=== PATIENT | female | born 1985 | race Caucasian/White ===

== ENCOUNTER → 2021-03-11 16:05 | Outpatient (CLI) | payer BC, SELFPAY | LOC: RT 16:06 | PROVIDERS: PCP Physician Assistant; Visit Provider Physician Assistant | DX: R00.2 Palpitations (principal) | CPT/HCPCS: 93225; 93226 ==

== ENCOUNTER → 2022-02-22 14:48 | Outpatient (CLI) | payer BC, SELFPAY ==
--- NOTE | 2022-02-22 14:59 | XR_ITS ---
FINAL REPORT CLINICAL HISTORY: NECK PAIN FINDINGS: Three views were obtained. There is no acute fracture. There is no malalignment. The disc spaces are maintained. IMPRESSION: No acute process. Reviewed, Interpreted and Dictated by Vamsi Gallegos MD Transcribed by Krystian Townsend Authenticated by Vamsi Gallegos MD on 02/22/2022 04:44:[address] [facility]
== END ==
LOC: RAD 14:53
PROVIDERS: PCP Family Medicine; Visit Provider Nurse Practitioner Family
DX: M54.2 Cervicalgia (principal)
CPT/HCPCS: 72040

== ENCOUNTER 2022-04-24 11:12 | Emergency (ER) | payer BC, SELFPAY ==
[2022-04-24 11:40] VITALS: BP 109/76; PULSE 78; RESP 18; TEMP 36.8; O2SAT 98; BMI 20.1
--- NOTE | 2022-04-24 12:06 | HMH.EDUTC ---
[facility] [place] Clinical Impression: Bartholin's gland abscess Disposition: Home, Self-Care Condition on Discharge: Good Instructions: Trimethoprim/Sulfamethoxazole (Alternative Therapy), Clindamycin, DI for Bartholin Gland Cyst, Bartholin Gland Cyst Additional Instructions: Take medication as prescribed Call OBGYN office in the morning and inform them that Dr Gilman wanted to see you in the morning for further evaluation and treatment Sitz baths as advised Do not try to pop this Return if needed Straight to ER if any life threatening symptoms Prescriptions: Ibuprofen [Ibuprofen 600mg Tablet] 600 mg PO Q6HP PRN #20 tab PRN Reason: Moderate Pain Transmission Status: Pending to [facility] Sulfamethoxazole/Trimethoprim [Bactrim DS tablet] 1 each PO BID 7 Days #14 tab Transmission Status: Pending to [facility] clindamycin HCL [Clindamycin HCl] 300 mg PO Q8H 7 Days #21 cap Transmission Status: Pending to [facility] Referrals: Maynor Lainez MD [Primary Care Provider] - Sherri Gilman DO [Physician] - (Call in the morning and inform staff she wanted to see first thing for appointment) Forms: Work/School Release Time of Disposition: 12:29 Medical Decision Making - Stevan Inquiry Pt receiving controlled substance: No Stevan was queried for this patient: No Vital Signs: 04/24/22 11:40 Temperature 98.2 F Temperature Source Oral Pulse Rate [Right Brachial] 78 Respiratory Rate 18 Blood Pressure [Right Arm] 109/76 L Blood Pressure Mean [Right Arm] 87 Blood Pressure Source [Right Arm] Automatic Cuff Blood Pressure Position [Right Arm] Sitting 02 Sat by Pulse Oximetry 98 Oxygen Delivery Method Room Air - Physician Consults Physician Consulted: Dr Gilman Time: 12:31 Reason -: Obstetrical Eval/Care Comment/Response: Spoke with Dr Kalina CHANEY health economist and discussed patient, will start on antibiotics, and have her call office in am for same day appointment and inform them that she wanted to see her today [facility] [place] - General Stated complaint: possible infected cyst Time Seen by Provider: 04/24/22 12:06 Mode of Arrival: Ambulatory Source of Information: Patient Limitations: No Limitations Description of Symptoms (Recalled from Triage Doc. by RN): PATIENT C/O PAINFUL CYST TO LABIA X 4 DAYS HEENT Symptoms (Recalled from RN notes): No Resp Symptoms (Recalled from RN notes): No Skin Symptoms (Recalled from RN notes): No MS Symptoms (Recalled from RN notes): No Functional Status (Recalled from RN notes): WNL - History of Present Illness Provider Complaint: Patient states that she has had a small lump on her left labia and she seen OBGYN and they told her it was a bartholins cyst and they needed to watch it that it may get worse and have to be opened States that for the last 4 days it has continued to get worse State that she has been getting worse so today she came in to get it checked out - Related Data Home Medications Medication Instructions Recorded Confirmed Escitalopram Oxalate 10 mg PO DAILY 04/24/22 04/24/22 Previous Rx's Medication Instructions Recorded Ibuprofen [Ibuprofen 600mg 600 mg PO Q6HP PRN #20 tab 04/24/22 Tablet] Sulfamethoxazole/Trimethoprim 1 each PO BID 7 Days #14 tab 04/24/22 [Bactrim DS tablet] clindamycin HCL [Clindamycin HCl] 300 mg PO Q8H 7 Days #21 cap 04/24/22 Allergies Allergy/AdvReac Type Severity Reaction Status Date / Time No Known Allergies Allergy Verified 03/02/22 10:28 - Worker's Comp Is this a Worker's Comp case?: No [facility] History - Hepatitis A Screen Attestation statement:: This patient has been screened for Hepatitis A risk factors. I have reviewed the patient's past medical history: Yes Amputation: No Fractures: No Comment: [place] Teeth. Retinal blastoma age 3 - Social History Smoking Status: Never smoker Alcohol Intake: never Alcohol Intake Frequency:: other Substance Use Type: denies use
[2022-04-24 12:31] VITALS: BP 109/76; PULSE 78; RESP 18; TEMP 36.8; O2SAT 98
== END 2022-04-24 12:33 | disposition home or self-care (01) ==
PROVIDERS: Emergency Provider Nurse Practitioner; PCP Family Medicine
DX: N75.1 Abscess of Bartholin's gland (principal)
CPT/HCPCS: 99212; G0463

== ENCOUNTER → 2022-04-25 17:13 | Outpatient (CLI) | payer BC, SELFPAY | PROVIDERS: Visit Provider Obstetrics & Gynecology | DX: N75.1 Abscess of Bartholin's gland (principal); B95.8 Unspecified staphylococcus as the cause of diseases classified elsewhere | CPT/HCPCS: 87070; 87077; 87186; 87205 ==

== ENCOUNTER → 2023-05-10 12:41 | Outpatient (CLI) | payer BC, SELFPAY ==
--- NOTE | 2023-05-10 12:41 | US_ITS ---
PROCEDURE: US TRANSVAGINAL CLINICAL INDICATION: heavy periods/ large uterus COMPARISON: No exams were available for comparison FINDINGS: Transvaginal sonographic images of the pelvis were obtained. UTERUS: 9cm x 5cmx 4cm with a combined endometrial thickness of 10.6mm. In the endometrial cavity there appears to be a polyp in the more central portion of the cavity measuring 1.1 cm. There is a posterior fibroid measuring 1.5 cm x 0.9 cm x 1.2 cm. There are a 5 mm and a 3 mm nabothian cysts within the cervix. LEFT OVARY: [id number] with a volume of 8.4ml.There are multiple small follicular cysts. RIGHT OVARY: 4cmx [id number] with a volume of 14.8ml. There are multiple small follicular cysts. Both ovaries are seen and appear normal. Doppler flow to both ovaries are seen. There is no fluid in the cul-de-sac. IMPRESSION: 1. Anteverted slightly bulky uterus. 2. 1.1 cm polyp within the endometrial cavity. 3. 1.5 cm posterior fibroid. 4. Both ovaries have a polycystic appearance. Dictated by: Gennaro Rosas MD 05/10/2023 19:34 Gennaro Rosas MD in OV 05/10/2023 19:34
== END ==
LOC: RAD 12:41
PROVIDERS: PCP Family Medicine; Visit Provider Nurse Practitioner Obstetrics & Gynecology
DX: Z87.42 Personal history of other diseases of the female genital tract (principal); N85.2 Hypertrophy of uterus
CPT/HCPCS: 76830

== ENCOUNTER → 2023-06-08 10:12 | Outpatient (CLI) | payer BC, SELFPAY ==
[2023-06-08 10:54] LABS: Basophils % 0.7 % (0.1-2.0); Eosinophils # 0.1 K/mm3 (0.0-0.4); Eosinophils % 2.1 % (0.1-12.0); Hematocrit 41.2 % (37.0-47.0); Hemoglobin 13.2 g/dL (12.2-16.2); Lymphocytes # 1.7 K/mm3 (0.7-4.5); Lymphocytes % 33.4 % (10-50); Mean Corpuscular HGB Conc 32.1 g/dL (31.8-35.4); Mean Corpuscular Hemoglobin 30.1 pg (27.0-31.2); Mean Corpuscular Volume 93.7 fl (81-99); Mean Platelet Volume 8.8 fl (7.4-10.4); Monocytes # 0.3 K/mm3 (0.1-1.0); Monocytes % 5.2 % (1.7-9.3); Neutrophils % 58.7 % (37.0-80.0); Platelet Count 224 K/mm3 (142-424); Red Blood Count 4.39 M/mm3 (4.20-5.40); Red Cell Distribution Width 13.1 % (11.5-17.5); White Blood Count 5.1 K/mm3 (4.8-10.8)
[2023-06-08 11:29] LABS: Chloride 109 mmol/L (98-107); Potassium 4.1 mmoL/L (3.5-5.1); Sodium 144 mmol/L (136-145)
[2023-06-08 11:32] LABS: Alanine Aminotransferase 19 U/L (12-78); Albumin Level 3.9 g/dl (3.5-5.0); Albumin/Globulin Ratio 1.6 (1.1-1.8); Alkaline Phosphatase 58 U/L (38-126); Anion Gap 13.1 mEq/L (5-15); Aspartate Amino Transferase 30 U/L (14-36); Bilirubin,Total 0.2 mg/dl (0.2-1.3); Blood Urea Nitrogen 10 mg/dl (7-17); Carbon Dioxide 26 mmol/L (22.0-30.0); Estimated Glomerular Filt Rate 113 ml/min (>60); GFR (African American) 137 ML/MIN (>60); Globulin 2.5 g/dL (1.3-3.2); Total Protein,Serum 6.4 g/dl (6.3-8.2)
[2023-06-08 11:33] LABS: Calcium 8.9 mg/dl (8.4-10.2); Glucose 81 mg/dl (74-100)
[2023-06-08 11:52] LABS: HCG,Quantitative < 2 mIU/ml (0-5.42)
== END ==
PROVIDERS: PCP Family Medicine; Visit Provider Nurse Practitioner Obstetrics & Gynecology
DX: N92.0 Excessive and frequent menstruation with regular cycle (principal); Z01.812 Encounter for preprocedural laboratory examination
CPT/HCPCS: 36415; 80053; 84702; 85025

== ENCOUNTER 2023-06-15 06:03 | Day surgery (SDC) | payer BC, SELFPAY ==
[2023-06-13 08:15] VITALS: BMI 24.1
[2023-06-15] VITALS (9 sets, daily range): BP systolic 104–135; BP diastolic 54–90; PULSE 53–66; RESP 10–18; TEMP 36.2–43; O2SAT 95–100
--- NOTE | 2023-06-15 07:44 | P.PNANES_ITS ---
[facility] Disclaimer: The information contained in this section may have been updated after the patient was seen, as this information can be updated by other users. Medical History Depression Menorrhagia Palpitations Retinoblastoma Surgical History (Updated 06/15/23 @ 06:16 by Marsha Alarcon RN) History of eye removal Family History Other No significant family history Social History (Updated 06/15/23 @ 06:17 by Marsha Alarcon RN) Smoking Status: Never smoker alcohol intake: current substance use type: denies use current occupational status: employed and other Travel in the last 8 weeks: None household members: spouse and children housing: house lives independently: No marital status: education level: college service: No jail: No caffeine: Yes special shane needs: No agree to transfusion: No do you feel safe at home: Yes victim of physical abuse: No victim of emotional abuse: No victim of sexual abuse: No would you like helpful sources: No [facility] Anesthesia Checklist Patient Identification Patient Identification: Verbal (Name & ) Structural Data Admitted From: Home Planned Operative Procedure/s: d/c,hyst Consent for Planned Operative Procedure(s) Verified: Yes Additional verifications Anesthesia Reactions: No Hx Blood Transfusions: No Blood Transfusion Reaction: No Airway Assessment Mallampati Score:: Class I C-Spine Mobility Assessed: Yes TMJ Mobility Assessed: Yes Dentition: Good Dentition Neurological Assessment Level of Consciousness: Awake, Alert and Appropriate Anesthesia Plan Anesthesia Risk discussed: Yes Anesthesia Plan: Verified ASA Class: I Anesthesia Type: General
--- NOTE | 2023-06-15 08:03 | EXP.OP.NOTE ---
Date of procedure: 06/15/23 Pre-op Diagnosis:: Menorrhagia Post-op Diagnosis:: Menorrhagia Procedure performed:: Hysteroscopy, dilation and curettage, NovaSure ablation Surgeon:: Gennaro Rosas MD SALES CONSULTANT:: Abdon Cherry Anesthesia: LMA Estimated blood loss (mL): 50 Clinical Note:: She is a 38-year-old lady who complains of very heavy periods. Ultrasound was normal. After having discussed the risk and benefits we elected to perform a hysteroscopy, D&C and NovaSure ablation. Operative findings:: She had an anteverted somewhat bulky uterus that sounded to 9 cm. The endometrial cavity appeared normal although somewhat erythematous. The endometrium was thin. Operative note:: She was taken to the operating room where LMA anesthesia was found be adequate. She was prepped and draped in the normal sterile fashion in the lithotomy position. A weighted speculum was placed in the vagina and the anterior lip of the cervix was grasped with a tenaculum. The cervix was then dilated to approximately 6 mm. I then inserted a hysteroscope into the uterine cavity and the findings were as previously dictated. I then performed a gentle curettage with a medium curette. I then sounded the uterus and determine the length of the uterus. It was centimeters. I then inserted the NovaSure device and determine the width of the endometrial cavity. The endometrial cavity length was 6 cm and the width was 4.4 cm. This was placed into the NovaSure device. I then ran the device through its program. I further inspected the endometrial cavity and was found to be completely charred. I then injected 30 cc of 0.5% ropivacaine at the 3:00, 5:00, 7:00, and 9:00 positions of the cervix. She tolerated procedure well and was taken to the recovery room in excellent condition. All sponge and instrument counts were correct. The estimated blood loss was less than 50 cc. Condition: stable Disposition: PACU Specimens:: Endometrial curettings Complications:: None
--- NOTE | 2023-06-15 08:04 | EXP.ANES.I ---
[facility] Anesthesia Record Part I Anesthesia Record I Intake, IV Amount: 1,000 Hydration: Adequate Estimated blood loss (mL): 0 Urine output (mL): 0 Blood Pressure: 130/79 SaO2: 95 Pulse Rate: 65 Airway Patency: Patent Respiratory Rate: 12 Temperature: 97.5 F Patient is:: Awake and Stable Stable to PACU at:: 08:05
--- NOTE | 2023-06-15 10:14 | EXP.ANES.II ---
[facility] Anesthesia Record Part II Anesthesia Record Part II Discharge Time: 08:35 Destination: Surgical Day Care (OP Surgery) PACU nurse assessment reviewed?: Yes Patient Condition:: Good Anesthesia Complications:: None Swallowing reflex intact?: Yes Airway Patency: Patent Cyanosis?: No Blood Pressure: 125/80 SaO2: 98 Respiratory Rate: 16 Pulse Rate: 59 Temperature: 97.1 F Mental Status: Alert & Oriented Pain level:: 2 Nausea and/or vomitting:: None Intake, IV Amount: 0 Hydration: Adequate
== END 2023-06-15 09:06 | disposition home or self-care (01) ==
PROVIDERS: PCP Family Medicine; Visit Provider Nurse Practitioner Obstetrics & Gynecology
PROC: 0U5B8ZZ Destruction of Endometrium, Via Natural or Artificial Opening Endoscopic (ICD-10-PCS; CPT 58563; principal; 2023-06-15 07:30)
DX: N92.0 Excessive and frequent menstruation with regular cycle (principal); N85.4 Malposition of uterus
CPT/HCPCS: 58563; 96374; J2405

== ENCOUNTER → 2023-08-22 10:31 | Outpatient (CLI) | payer BC, SELFPAY ==
[2023-08-22 10:47] LABS: Basophils % 0.3 % (0.1-2.0); Eosinophils # 0.1 K/mm3 (0.0-0.4); Eosinophils % 1.6 % (0.1-12.0); Hematocrit 44.9 % (37.0-47.0); Hemoglobin 15.2 g/dL (12.2-16.2); Lymphocytes % 27.8 % (10-50); Mean Corpuscular HGB Conc 33.8 g/dL (31.8-35.4); Mean Corpuscular Hemoglobin 32.1 pg (27.0-31.2); Mean Platelet Volume 9.1 fl (7.4-10.4); Monocytes # 0.5 K/mm3 (0.1-1.0); Monocytes % 6.9 % (1.7-9.3); Neutrophils # 4.5 K/mm3 (1.8-7.8); Neutrophils % 63.3 % (37.0-80.0); Platelet Count 180 K/mm3 (142-424); Red Blood Count 4.72 M/mm3 (4.20-5.40); Red Cell Distribution Width 12.9 % (11.5-17.5)
[2023-08-22 11:55] LABS: Alanine Aminotransferase 20 U/L (12-78); Albumin Level 4.6 g/dl (3.5-5.0); Albumin/Globulin Ratio 1.7 (1.1-1.8); Alkaline Phosphatase 55 U/L (38-126); Anion Gap 12.9 mEq/L (5-15); Aspartate Amino Transferase 30 U/L (14-36); Bilirubin,Total 0.6 mg/dl (0.2-1.3); Blood Urea Nitrogen 10 mg/dl (7-17); Calcium 9.4 mg/dl (8.4-10.2); Carbon Dioxide 25 mmol/L (22.0-30.0); Chloride 103 mmol/L (98-107); Estimated Glomerular Filt Rate 113 ml/min (>60); GFR (African American) 137 ML/MIN (>60); Globulin 2.7 g/dL (1.3-3.2); Glucose 97 mg/dl (74-100); Potassium 3.9 mmoL/L (3.5-5.1); Sodium 137 mmol/L (136-145); Total Protein,Serum 7.3 g/dl (6.3-8.2)
[2023-08-22 12:10] LABS: HCG,Quantitative < 2 mIU/ml (0-5.42)
== END ==
PROVIDERS: PCP Nurse Practitioner Family; Visit Provider Nurse Practitioner Obstetrics & Gynecology
DX: N75.1 Abscess of Bartholin's gland (principal)
CPT/HCPCS: 36415; 80053; 84702; 85025

== ENCOUNTER 2023-08-29 10:06 | Day surgery (SDC) | payer BC, SELFPAY ==
[2023-08-25 14:49] VITALS: BMI 23.8
[2023-08-29 10:17] VITALS: BP 128/88; PULSE 58; RESP 18; TEMP 36.6; O2SAT 99
--- NOTE | 2023-08-29 10:47 | EXP.ANES.CKL ---
[facility] Disclaimer: The information contained in this section may have been updated after the patient was seen, as this information can be updated by other users. Medical History Depression Menorrhagia Palpitations Retinoblastoma Surgical History History of endometrial ablation History of eye removal Family History Other Hypertension Social History Smoking Status: Never smoker alcohol intake: current substance use type: denies use current occupational status: employed and other Travel in the last 8 weeks: None household members: spouse and children housing: house lives independently: No marital status: education level: college service: No intermediate: No caffeine: Yes special shane needs: No agree to transfusion: No do you feel safe at home: Yes victim of physical abuse: No victim of emotional abuse: No victim of sexual abuse: No would you like helpful sources: No [facility] Anesthesia Checklist Patient Identification Patient Identification: Arm Band Structural Data Admitted From: Home Planned Operative Procedure/s: Excision of Bartholin's Cyst Consent for Planned Operative Procedure(s) Verified: Yes Verified Documents: Surgical Consent and History and Physical NPO Status Verified Time NPO: 00:00 Additional verifications Anesthesia Reactions: No Hx Blood Transfusions: No Blood Transfusion Reaction: No Airway Assessment Mallampati Score:: Class II C-Spine Mobility Assessed: Yes TMJ Mobility Assessed: Yes Dentition: Good Dentition Neurological Assessment Level of Consciousness: Awake and Alert Anesthesia Plan Anesthesia Risk discussed: Yes Anesthesia Plan: Verified ASA Class: I Anesthesia Type: MAC
[2023-08-29 12:00] VITALS: BP 110/65; PULSE 67; RESP 17; TEMP 36.6; O2SAT 97
[2023-08-29 12:10] VITALS: BP 103/60; PULSE 66; RESP 17; O2SAT 97
--- NOTE | 2023-08-29 12:10 | P.OP_ITS ---
Date of procedure: 08/29/23 Pre-op Diagnosis:: Bartholin's gland cyst Post-op Diagnosis:: Bartholin's gland sterile abscess Procedure performed:: Marsupialization of Bartholin's gland abscess Surgeon:: Gennaro Rosas MD SKEIN YARD DRIER:: Sherif Bran Anesthesia: MAC Estimated blood loss (mL): 25 Clinical Note:: She is a 38-year-old lady who complains of a Bartholin's gland cyst. She has had a previous marsupialization of a Bartholin's gland abscess. She had previous drainage of an abscess as well. She had noticed this new left-sided Bartholin's gland cyst a few weeks ago and although it was not painful she wanted it marsupialized. Operative findings:: She had a tooth centimeter left Bartholin's gland cyst and when I opened up into the cyst cavity it was full of liquid pus. I suspect that it was a sterile abscess since the Bartholin's gland was nontender and was not growing. Operative note:: She was taken the operating room where MAC anesthesia was found be adequate. She was prepped draped normal sterile fashion lithotomy position. I grasped the Bartholin's gland between my fingers and using a 15 blade I opened up into the abscess cavity. Upon entering the abscess cavity there was copious thin pus. Aerobic and anaerobic cultures were taken. I then further opened up the anterior aspect of the abscess cavity with Metzenbaum scissors. I then used 3-0 Vicryl Rapide suture in an interrupted fashion around the outside of the opening of the abscess cavity. I was careful to include both the inside and outside mucosa of the abscess. I then injected approximately 10 cc of 0.25% ropivacaine in the subcutaneous tissues. She tolerated procedure well and was taken recovery max condition. All sponge, instrument and needle counts were correct. Estimated blood loss was less than 25 cc. Condition: stable Disposition: PACU Specimens:: None Complications:: None
[2023-08-29 12:20] VITALS: BP 109/63; PULSE 69; RESP 18; O2SAT 98
[2023-08-29 12:30] VITALS: BP 112/67; PULSE 70; RESP 18; O2SAT 98
== END 2023-08-29 12:30 | disposition home or self-care (01) ==
PROVIDERS: PCP Nurse Practitioner Family; Visit Provider Nurse Practitioner Obstetrics & Gynecology
PROC: (CPT 56440; principal; 2023-08-29 11:30)
DX: N75.1 Abscess of Bartholin's gland (principal)
CPT/HCPCS: 56440; 87075; 87205; 96374